=== PATIENT | male | born 1950 | race Native Hawaiian/Other Pacific Islander ===

== ENCOUNTER 2017-02-14 12:56 | Outpatient (CLI) | payer OTHER ==
[2017-02-14 13:12] LABS: PLATELET COUNT 183 K/uL (142-355)
[2017-02-14 13:48] LABS: POTASSIUM 4.7 mmol/L (3.6-5.2); SODIUM 136 mmol/L (136-145)
== END 2017-02-14 21:06 | disposition home or self-care (01) ==
LOC: LAB 12:56
PROVIDERS: Nurse Practitioner Family
DX: I25.10 Atherosclerotic heart disease of native coronary artery without angina pectoris (principal); E55.9 Vitamin D deficiency, unspecified; I10 Essential (primary) hypertension; E78.5 Hyperlipidemia, unspecified; E11.69 Type 2 diabetes mellitus with other specified complication
CPT/HCPCS: 80053; 80061; 82306; 83036; 84439; 84443; 85027

== ENCOUNTER 2017-09-05 14:30 | Outpatient (CLI) | payer OTHER ==
[2017-09-05 15:38] LABS: PLATELET COUNT 172 K/uL (142-355)
[2017-09-05 16:08] LABS: POTASSIUM 4.9 mmol/L (3.6-5.2); SODIUM 139 mmol/L (136-145)
== END 2017-09-05 15:30 | disposition home or self-care (01) ==
LOC: LAB 14:30
PROVIDERS: Nurse Practitioner Family
DX: E11.69 Type 2 diabetes mellitus with other specified complication (principal); E78.4 Other hyperlipidemia; I10 Essential (primary) hypertension; I25.10 Atherosclerotic heart disease of native coronary artery without angina pectoris; Z79.899 Other long term (current) drug therapy; Z51.81 Encounter for therapeutic drug level monitoring; E55.9 Vitamin D deficiency, unspecified
CPT/HCPCS: 80053; 80061; 82306; 83036; 84153; 84402; 84436; 84443; 85027

== ENCOUNTER 2017-12-24 12:40 | Inpatient (IN) | payer OTHER ==
[~2017-12-24] VITALS: Ht 190.5 cm; Wt 142.5 kg
[2017-12-24 14:16] VITALS: BP 148/69; TEMP 98; Ht 190.5 cm; Wt 142.5 kg
[2017-12-24 20:00] VITALS: BP 137/73; TEMP 97.4
[2017-12-25 20:22] VITALS: BP 160/86; TEMP 98.2
[2017-12-26 07:57] VITALS: BP 154/79; TEMP 98.5
[2017-12-26 20:44] VITALS: BP 145/80; TEMP 98.1
[2017-12-27 08:28] VITALS: BP 134/77; TEMP 98.9
[2017-12-27 20:33] VITALS: BP 136/71; TEMP 98.9
[2017-12-28 11:16] VITALS: BP 155/76; TEMP 98.7
[2017-12-28 20:28] VITALS: BP 121/71; TEMP 98.4
[2017-12-29 08:10] VITALS: BP 134/63; TEMP 98
[2017-12-29 20:00] VITALS: BP 139/80; TEMP 98.5
[2017-12-30 08:49] VITALS: BP 138/75; TEMP 97.8
[2017-12-30 20:00] VITALS: BP 119/64; TEMP 98.6
[2017-12-31 08:35] VITALS: BP 142/78; TEMP 97.8
[2017-12-31 20:00] VITALS: BP 127/64; TEMP 98.2
[2018-01-01 09:09] VITALS: BP 123/60; TEMP 98
[2018-01-01 20:26] VITALS: BP 112/53; TEMP 98
[2018-01-02 08:52] VITALS: BP 131/64; TEMP 98.6
[2018-01-02 20:20] VITALS: BP 114/65; TEMP 97.9
[2018-01-03 08:00] VITALS: BP 124/63; TEMP 98.6
[2018-01-04 08:00] VITALS: BP 131/62; TEMP 98.2
[2018-01-05 08:00] VITALS: BP 110/59; TEMP 98.2
[2018-01-05 19:52] VITALS: BP 114/60; TEMP 98.6
[2018-01-06 10:16] LABS: PLATELET COUNT 274 K/uL (142-355)
[2018-01-06 10:34] LABS: POTASSIUM 3.9 mmol/L (3.6-5.2)
[2018-01-06 20:00] VITALS: BP 107/56; TEMP 97.8
[2018-01-07 08:07] VITALS: BP 131/67; TEMP 98.8
[2018-01-07 20:58] VITALS: BP 131/68; TEMP 98.2
[2018-01-08 08:35] VITALS: BP 117/62; TEMP 98.1
[2018-01-08 20:00] VITALS: BP 112/51; TEMP 98.1
[2018-01-09 20:00] VITALS: BP 114/60; TEMP 98.4
[2018-01-10 08:00] VITALS: BP 131/73; TEMP 98.4
[2018-01-10 20:17] VITALS: BP 120/68; TEMP 99
== END 2018-01-11 11:25 | disposition home or self-care (01) | DRG 556 ==
LOC: MED/SURG 12:40
PROVIDERS: ADMIT Emergency Medicine
DX: M62.81 Muscle weakness (generalized) (principal); M17.11 Unilateral primary osteoarthritis, right knee; Z47.1 Aftercare following joint replacement surgery; Z96.651 Presence of right artificial knee joint
CPT/HCPCS: 80053; 85027; 87081; 96372; J1650

== ENCOUNTER 2023-05-03 16:58 | Emergency (ER) | payer OTHER ==
[~2023-05-03] VITALS: Ht 190.5 cm; Wt 149.7 kg
[2023-05-03 17:03] VITALS: TEMP 98.2
[2023-05-03 18:15] LABS: PLATELET COUNT 176 K/uL (142-355)
[2023-05-03 18:48] LABS: POTASSIUM 4.3 mmol/L (3.6-5.2)
[2023-05-03 20:53] VITALS: BP 132/70
== END 2023-05-03 20:53 | disposition home or self-care (01) ==
LOC: ED 16:58
PROVIDERS: Family Medicine
DX: R06.02 Shortness of breath (principal); R94.31 Abnormal electrocardiogram [ECG] [EKG]
CPT/HCPCS: 36600; 80053; 82805; 83605; 84484; 85027; 93005; 94664; 99283